=== PATIENT | female | born 1980 | race Caucasian/White ===

== ENCOUNTER → 2016-12-21 16:41 | Outpatient (CLI) | payer MEDICAID | END | disposition home or self-care (01) | LOC: D.MAMMO 12-06 14:45 | DX: Z12.31 Encounter for screening mammogram for malignant neoplasm of breast (principal) ==

== ENCOUNTER → 2017-02-10 16:42 | Outpatient (CLI) | payer MEDICAID | END | disposition home or self-care (01) | LOC: D.MAMMO 11:45 | DX: R92.8 Other abnormal and inconclusive findings on diagnostic imaging of breast (principal) ==